=== PATIENT | female | born 1950 | race Caucasian/White ===

== ENCOUNTER 2021-05-19 13:23 | Outpatient (CLI) | payer MEDICARE | END 2021-05-19 13:24 | disposition home or self-care (01) | LOC: CSHULT 13:23 | PROVIDERS: ATTEND Family Medicine | DX: E04.1 Nontoxic single thyroid nodule (principal) | CPT/HCPCS: 76536 ==

== ENCOUNTER 2021-11-04 09:33 | Outpatient (CLI) | payer MEDICARE | END 2021-11-04 09:34 | disposition home or self-care (01) | LOC: CSHULT 09:33 | PROVIDERS: ATTEND Family Medicine | DX: R10.11 Right upper quadrant pain (principal) | CPT/HCPCS: 76700 ==

== ENCOUNTER 2021-11-16 09:34 | Outpatient (CLI) | payer MEDICARE ==
[2021-11-16] MEDS ORDERED: Iopamidol 300 61% 100 ML VIAL FS ONE (12:12)
== END 2021-11-16 09:35 | disposition home or self-care (01) ==
LOC: CSHCT 09:34
PROVIDERS: ATTEND Family Medicine
DX: R10.10 Upper abdominal pain, unspecified (principal); N20.0 Calculus of kidney; K86.9 Disease of pancreas, unspecified
CPT/HCPCS: 74160; 82565; Q9967

== ENCOUNTER 2022-07-05 23:18 | Emergency (ER) | payer MEDICARE | END 2022-07-06 00:08 | disposition home or self-care (01) | LOC: CSHERS 23:18 | DX: S93.401A Sprain of unspecified ligament of right ankle, initial encounter (principal); I25.2 Old myocardial infarction; X50.9XXA Other and unspecified overexertion or strenuous movements or postures, initial encounter ==